=== PATIENT | male | born 1965 | race African-American/Black ===

== ENCOUNTER 2023-01-13 13:19 | Inpatient (IN) | payer OTHER ==
[2023-01-13 14:48] VITALS: BMI 21.2
[2023-01-13] MEDS ORDERED: PERMETHRIN 5% TOPICAL CREAM 60 GM TUBE TP ONE ×3 (16:07→21:15)
[2023-01-13] MEDS ORDERED: P-EPHED 60MG/TRIPROLIDI 2.5MG TABLET PO PRN (16:08)
[2023-01-13] MEDS ORDERED: IBUPROFEN 400 MG TABLET (FP) PO PRN (16:08)
[2023-01-13] MEDS ORDERED: ACETAMINOPHEN 325 MG TABLET (FP) PO PRN (16:08)
[2023-01-13] MEDS ORDERED: BENZOCAINE/MENTHOL (CHLORASEPTIC ) LOZENGE MM PRN (16:08)
[2023-01-13] MEDS ORDERED: BENZONATATE 200 MG CAPSULE PO PRN (16:08)
[2023-01-13] MEDS ORDERED: POLYETHYLENE GLYCOL (HEALTHYLAX) 3350 17 GM PACKET PO PRN (16:08)
[2023-01-13] MEDS ORDERED: MAGNESIUM HYDROX 2400MG/30ML ORAL SUSPENSION 30 ML CUP PO PRN (16:08)
[2023-01-13] MEDS ORDERED: guaiFENesin 600 MG TABLET.ER (FP) PO PRN (16:08)
[2023-01-13] MEDS ORDERED: IBUPROFEN 600 MG TABLET (FP) PO PRN (16:08)
[2023-01-13] MEDS ORDERED: LOPERAMIDE HCL 2 MG CAPSULE PO PRN (16:08)
[2023-01-13] MEDS ORDERED: MAG HYDROX/AL HYDROX/SIMETH 30 ML UNIT-DOSE CUP PO PRN (16:08)
[2023-01-13] MEDS ORDERED: PERMETHRIN 5% TOPICAL CREAM 60 GM TUBE ONE (17:00)
[2023-01-13] MEDS ORDERED: ASPIRIN 81 MG CHEWABLE TABLETS PO SCH (17:15)
[2023-01-13] MEDS: INSULIN SLIDING SCALE (NOVOLOG) 1 VIAL SQ SCH ×2 (21:46→21:51)
[2023-01-13] MEDS: THIAMINE HCL 100 MG TABLET (FP) PO SCH (21:58)
[2023-01-13] MEDS: ASPIRIN 81 MG CHEWABLE TABLETS PO SCH (21:58)
[2023-01-14] MEDS: metFORMIN HCL 500 MG TABLET (FP) PO SCH (08:33)
[2023-01-14] MEDS: INSULIN SLIDING SCALE (NOVOLOG) 1 VIAL SQ SCH ×4 (08:34→21:41)
[2023-01-14] MEDS: ASPIRIN 81 MG CHEWABLE TABLETS PO SCH (09:47)
[2023-01-14] MEDS: PRENATAL VITAMINS W/ FOLIC ACID TABLET (FP) PO SCH (09:47)
[2023-01-14] MEDS: LIDOCAINE 5% TOPICAL PATCH TP SCH (09:48)
[2023-01-14 11:10] LABS: HEMOGLOBIN 13.7 GM/dL (11.7-16.9); MCH 31.7 pg (25.7-33.7); MCHC 34.2 g/dl (32.0-35.9); MEAN CELL VOLUME 92.9 fl (80-96); MEAN PLT VOLUME 7.6 fl (7.5-11.1); PLATELET COUNT 186 10^3/uL (134-434); RDW 13.5 % (11.9-15.9); WHITE BLOOD COUNT 5.7 K/mm3 (4.0-10.0)
[2023-01-14 11:24] LABS: ALBUMIN 3.1 g/dl (3.4-5.0)
[2023-01-14 11:26] LABS: BLOOD UREA NITROGEN 19.3 mg/dL (7-18); CALCIUM 8.6 mg/dL (8.5-10.1)
[2023-01-14 11:29] LABS: BILIRUBIN,TOTAL 0.8 mg/dL (0.2-1); TOT PROT 6.2 g/dl (6.4-8.2)
[2023-01-14] MEDS: NICOTINE 10 MG CARTRIDGE (INHALER) IH PRN (12:24)
[2023-01-14] MEDS: NICOTINE POLACRILEX 2 MG GUM BC PRN (12:24)
[2023-01-14] MEDS: MELATONIN 5 MG TABLETS PO PRN (21:26)
[2023-01-14] MEDS: hydrOXYzine PAMOATE 25 MG CAPSULE (FP) PO PRN (21:26)
[2023-01-14] MEDS: THIAMINE HCL 100 MG TABLET (FP) PO SCH (21:26)
[2023-01-14] MEDS: LIDOCAINE PATCH REMOVAL MC SCH (21:40)
[2023-01-14] MEDS: QUEtiapine FUMARATE 200 MG TABLET PO SCH (23:15)
[2023-01-15] MEDS: metFORMIN HCL 500 MG TABLET (FP) PO SCH (06:47)
[2023-01-15] MEDS: INSULIN SLIDING SCALE (NOVOLOG) 1 VIAL SQ SCH ×4 (07:04→21:20)
[2023-01-15] MEDS: NICOTINE POLACRILEX 2 MG GUM BC PRN ×3 (08:26→21:20)
[2023-01-15] MEDS: ASPIRIN 81 MG CHEWABLE TABLETS PO SCH (09:49)
[2023-01-15] MEDS: PRENATAL VITAMINS W/ FOLIC ACID TABLET (FP) PO SCH (09:49)
[2023-01-15] MEDS: LIDOCAINE 5% TOPICAL PATCH TP SCH (09:50)
[2023-01-15] MEDS: NICOTINE 10 MG CARTRIDGE (INHALER) IH PRN (12:05)
[2023-01-15 14:29] LABS: EPI CELLS 12 /uL (0-25.1); HYALINE CASTS 1 /uL (0-3.1); PH,URINE 6.5 (5.0-8.0); URINE APPEARANCE CLEAR; URINE BACTERIA 68 /uL (0-1359); URINE BILIRUBIN NEGATIVE (NEGATIVE); URINE COLOR YELLOW; URINE GLUCOSE (UA) NEGATIVE (NEGATIVE); URINE KETONE NEGATIVE (NEGATIVE); URINE LEUK ESTERASE TRACE (NEGATIVE); URINE NITRITE NEGATIVE (NEGATIVE); URINE PROTEIN NEGATIVE (NEGATIVE); URINE RBC 5 /uL (0-23.9); URINE UROBILINOGEN 0.2 mg/dL (0.2-1.0); URINE WBC 16 /uL (0-25.8)
[2023-01-15] MEDS ORDERED: INSULIN (NOVOLOG) ASPART 100 UNITS/ML 10ML VIAL ONE ×2 (16:42→23:16)
[2023-01-15] MEDS: THIAMINE HCL 100 MG TABLET (FP) PO SCH (21:17)
[2023-01-15] MEDS: MELATONIN 5 MG TABLETS PO PRN (21:17)
[2023-01-15] MEDS: QUEtiapine FUMARATE 200 MG TABLET PO SCH (21:18)
[2023-01-15] MEDS: hydrOXYzine PAMOATE 25 MG CAPSULE (FP) PO PRN (21:18)
[2023-01-15] MEDS: LIDOCAINE PATCH REMOVAL MC SCH (21:18)
[2023-01-16] MEDS: INSULIN SLIDING SCALE (NOVOLOG) 1 VIAL SQ SCH ×2 (07:05→12:00)
[2023-01-16] MEDS: metFORMIN HCL 500 MG TABLET (FP) PO SCH (07:05)
[2023-01-16] MEDS: ASPIRIN 81 MG CHEWABLE TABLETS PO SCH (09:40)
[2023-01-16] MEDS: PRENATAL VITAMINS W/ FOLIC ACID TABLET (FP) PO SCH (09:40)
[2023-01-16] MEDS: LIDOCAINE 5% TOPICAL PATCH TP SCH (09:40)
[2023-01-16] MEDS: NICOTINE POLACRILEX 2 MG GUM BC PRN (14:21)
[2023-01-16] MEDS ORDERED: BUPRENORPHINE/NALOXONE 2 MG/0.5 MG FILM PACKET SL ONE (15:36)
[2023-01-16] MEDS ORDERED: INSULIN (NOVOLOG) ASPART 100 UNITS/ML 10ML VIAL ONE (16:40)
[2023-01-16] MEDS: QUEtiapine FUMARATE 200 MG TABLET PO SCH (21:09)
[2023-01-16] MEDS: MELATONIN 5 MG TABLETS PO PRN (21:09)
[2023-01-16] MEDS: hydrOXYzine PAMOATE 25 MG CAPSULE (FP) PO PRN (21:09)
[2023-01-16] MEDS: THIAMINE HCL 100 MG TABLET (FP) PO SCH (21:09)
[2023-01-16] MEDS: LIDOCAINE PATCH REMOVAL MC SCH (21:09)
[2023-01-17] MEDS: metFORMIN HCL 500 MG TABLET (FP) PO SCH (06:30)
[2023-01-17] MEDS: INSULIN SLIDING SCALE (NOVOLOG) 1 VIAL SQ SCH ×3 (06:33→17:35)
[2023-01-17] MEDS: NICOTINE POLACRILEX 2 MG GUM BC PRN (06:34)
[2023-01-17] MEDS ORDERED: NITROGLYCERIN SUBLINGUAL 1/150 0.4 MG TAB SL PRN ×2 (08:26→08:28)
[2023-01-17] MEDS: ASPIRIN 81 MG CHEWABLE TABLETS PO SCH (10:16)
[2023-01-17] MEDS: PRENATAL VITAMINS W/ FOLIC ACID TABLET (FP) PO SCH (10:17)
[2023-01-17] MEDS: LIDOCAINE 5% TOPICAL PATCH TP SCH (10:17)
[2023-01-17] MEDS: BUPRENORPHINE/NALOXONE 4 MG/1 MG FILM PACKET SL SCH ×2 (10:17→18:02)
[2023-01-17] MEDS: NICOTINE 10 MG CARTRIDGE (INHALER) IH PRN (10:24)
[2023-01-17] MEDS: QUEtiapine FUMARATE 200 MG TABLET PO SCH (21:37)
[2023-01-17] MEDS: THIAMINE HCL 100 MG TABLET (FP) PO SCH (21:37)
[2023-01-17] MEDS: hydrOXYzine PAMOATE 25 MG CAPSULE (FP) PO PRN (21:37)
[2023-01-17] MEDS: MELATONIN 5 MG TABLETS PO PRN (21:37)
[2023-01-17] MEDS: LIDOCAINE PATCH REMOVAL MC SCH (21:38)
[2023-01-18] MEDS: metFORMIN HCL 500 MG TABLET (FP) PO SCH (06:21)
[2023-01-18] MEDS: INSULIN SLIDING SCALE (NOVOLOG) 1 VIAL SQ SCH ×2 (06:27→16:24)
[2023-01-18 07:14] VITALS: BP 104/69; PULSE 94; RESP 18; TEMP 98.4
[2023-01-18] MEDS: PRENATAL VITAMINS W/ FOLIC ACID TABLET (FP) PO SCH (09:36)
[2023-01-18] MEDS: LIDOCAINE 5% TOPICAL PATCH TP SCH (09:36)
[2023-01-18] MEDS: BUPRENORPHINE/NALOXONE 4 MG/1 MG FILM PACKET SL SCH ×2 (09:36→18:29)
[2023-01-18] MEDS: ASPIRIN 81 MG CHEWABLE TABLETS PO SCH (09:36)
[2023-01-18] MEDS: NICOTINE 10 MG CARTRIDGE (INHALER) IH PRN (14:42)
[2023-01-18] MEDS: NICOTINE POLACRILEX 2 MG GUM BC PRN (14:43)
[2023-01-18] MEDS ORDERED: INSULIN (NOVOLOG) ASPART 100 UNITS/ML 10ML VIAL ONE (16:22)
== END 2023-01-18 18:27 | disposition left against medical advice (07) | DRG 770 ==
LOC: YASAS 13:19 → Y3W 19:34 → Y3E 22:26
PROVIDERS: ADMIT Allergy & Immunology; ATTEND Psychiatry & Neurology Pain Medicine
PROC: HZ42ZZZ Group Counseling for Substance Abuse Treatment, Cognitive-Behavioral (ICD-10-PCS; principal; 2023-01-13)
DX: F10.20 Alcohol dependence, uncomplicated (principal); F14.20 Cocaine dependence, uncomplicated; F12.20 Cannabis dependence, uncomplicated; F17.210 Nicotine dependence, cigarettes, uncomplicated; I25.10 Atherosclerotic heart disease of native coronary artery without angina pectoris; I10 Essential (primary) hypertension; I25.2 Old myocardial infarction; E11.9 Type 2 diabetes mellitus without complications; M54.50 Low back pain, unspecified; G89.29 Other chronic pain; Z86.11 Personal history of tuberculosis
CPT/HCPCS: 36415; 71046-TC-FY; 80053; 81003; 82962; 85027; 86780; 93005; 93010; C9803-CS; U0003; U0005